=== PATIENT | female | born 1980 | race Caucasian/White ===

== ENCOUNTER 2017-09-11 09:03 | Emergency (ER) | payer BC ==
[2017-09-11 09:17] VITALS: BP 129/84
[2017-09-11] MEDS ORDERED: Dexamethasone TAB* 4 MG PO ONE (10:10)
--- NOTE | 2017-09-11 10:11 | UC ---
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 She says that she is allergic to tide detergent and when she asked the other staff about the towels - they informed her that they ran out of the usual detergent so were using tide. They advised pt to come to for this rash and itchiness. She has not taken anything po. Denies fever, chills, SOB, facial swelling, throat swelling, or difficulty breathing. - History of Current Complaint Chief Complaint: UCRash Time Seen by Provider: 09/11/17 09:59 Stated Complaint: RASH Hx Obtained From: Patient Hx Last Menstrual Period: 09/05/17 Onset/Duration: Sudden Onset Timing: Constant Current Severity: None Pain Intensity: 0 Location: Diffuse - Allergy/Home Medications Allergies/Adverse Reactions: Allergies Allergy/AdvReac Type Severity Reaction Status Date / Time Tide laundry soap Allergy Rash Uncoded 09/11/17 09:18 Home Medications: Home Medications Liraglutide [Saxenda] 1 inj SQ DAILY 09/11/17 [History Confirmed 09/11/17] metFORMIN* [Glucophage 500 MG TAB *] 1,000 mg PO DAILY 09/11/17 [History Confirmed 09/11/17] Review of Systems Constitutional: Negative Skin: Rash Eyes: Negative ENT: Negative Respiratory: Negative Cardiovascular: Negative Gastrointestinal: Negative Neurological: Negative Psychological: Negative All Other Systems Reviewed And Are Negative: Yes PMH/Surg Hx/FS Hx/Imm Hx Endocrine History: Diabetes - Surgical History Surgical History: None Surgery Procedure, Year, and Place: vocal cord surgery - December 2015 - Family History Known Family History: Positive: Hypertension Negative: Cardiac Disease, Diabetes - Social History Occupation: Employed Full-time Lives: With Family Alcohol Use: Occasionally Alcohol Amount: WINE 2 X WEEK Substance Use Type: None Smoking Status (MU): Never Smoked Tobacco Household Exposure Type: Cigarettes Physical Exam Triage Information Reviewed: Yes Appearance: Well-Appearing, No Pain Distress, Obese Vital Signs: Initial Vital Signs Temp 97.1 F 09/11/17 09:13 Pulse 69 09/11/17 09:13 Resp 16 09/11/17 09:13 BP 129/84 09/11/17 09:13 Pulse Ox 99 09/11/17 09:13 Vital Signs Reviewed: Yes Eyes: Positive: Conjunctiva Clear, Other: - No edema. Negative: Conjunctiva Inflamed, Discharge ENT: Positive: Pharynx normal. Negative: Pharyngeal erythema, Muffled voice, Hoarse voice Neck: Positive: Supple, Nontender, No Lymphadenopathy, Other: - No edema. Trachea midline Respiratory: Positive: Lungs clear, Normal breath sounds, No respiratory distress, No accessory muscle use Cardiovascular: Positive: RRR, No Murmur, Pulses Normal Neurological: Positive: Alert Psychological: Positive: Age Appropriate Behavior Skin: Positive: Other - Diffuse mildly erythematous maculopapular rash focused on b/l UEs. No streaking, drainage, or open lesions. Course/Dx - Course Course Of Treatment: Pt said that this is her usual reaction when she is exposed to Tide. Dexamethsone given in clinic today. Rx for prednisone and advised to take benadryl prn itch. Go to ED if symptoms persist or worsen - Diagnoses Provider Diagnoses: Allergic reaction - contact Discharge - Discharge Plan Condition: Stable Disposition: HOME Prescriptions: predniSONE TAB* [Deltasone TAB*] 50 mg PO DAILY #5 tab Patient Education Materials: General Allergic Reaction (ED) Forms: *Work Release Referrals: Tommy Carrera MD [Primary Care Provider] - Additional Instructions: If you develop a fever, shortness of breath, throat/face swelling, chest pain, new or worsening symptoms - please call your PCP or go to the ED. Your blood pressure was mildly elevated at todays visit. Please see your primary provider within 4 weeks for recheck and re-evaluation. 1) While taking the prednisone, you may notice a slight increase in your blood sugar levels - please monitor your sugars and if they are abnormally elevated for you, please contact your PCP.
== END 2017-09-11 10:17 | disposition home or self-care (01) ==
LOC: UCEAST 09:03
DX: L23.89 Allergic contact dermatitis due to other agents (principal); E11.9 Type 2 diabetes mellitus without complications; Z79.84 Long term (current) use of oral hypoglycemic drugs
CPT/HCPCS: 99212; G0463; J8540

== ENCOUNTER 2017-10-06 14:22 | Emergency (ER) | payer BC ==
--- NOTE | 2017-10-06 15:07 | RAD ---
INDICATION: Left ankle pain after a slip and fall injury COMPARISON: Left ankle radiograph dated March 25, 2010 TECHNIQUE: 3 views of the left ankle were obtained. FINDINGS: Depicted on the lateral view of the ankle there is a nondisplaced fracture at the posterior malleolus of the tibia. The bones are otherwise intact and appropriately aligned. Enthesophyte formation is noted at the calcaneal tubercle at the insertion site of the Achilles tendon and origin of the plantar fascia. A lunate shape bony focus is seen on the lateral view radiograph just inferior to the inferior margin of the joint between the calcaneus and cuboid bone unchanged from the prior ankle radiograph. IMPRESSION: NONDISPLACED POSTERIOR MALLEOLUS FRACTURE DESCRIBED ABOVE.
--- NOTE | 2017-10-06 15:46 | ED ---
Lower Extremity - HPI Summary HPI Summary: 36 female presents to ED with complaints of left ankle pain that began yesterday after sustaining a fall on the ice. States she heard a pop and has been unable to bear weight. States she tried elevating, resting and icing however pain just worsened. Has been unable to bear weight. Denies any other complaints or injuries. Did not hit head. No knee or hip pain. Patient has been taking ibuprofen with some relief. Pain is worse with weight bearing and movement. No numbness/tingling. Admits to swelling and bruising. - History of Current Complaint Chief Complaint: EDExtremityLower Stated Complaint: LT ANKLE INJURY Time Seen by Provider: 10/06/17 14:30 Hx Obtained From: Patient Hx Last Menstrual Period: 09/05/17 Mechanism Of Injury: Fall From A Standing Position, Twisted Onset of Pain: Immediate, Post Accident Onset/Duration: Days - yesterday Severity Initially: Mild Severity Currently: Mild Pain Intensity: 2 Pain Scale Used: 0-10 Numeric - worse with bearing weight and movement Timing: Constant Location: Is Discrete @ - left ankle Character Of Pain: Sharp, Aching Associated Signs And Symptoms: Positive: Swelling, Bruising Aggravating Factor(s): Standing, Ambulation, Movement, Weight Bearing Alleviating Factor(s): Rest Able to Bear Weight: No - no due to pain - Allergies/Home Medications Allergies/Adverse Reactions: Allergies Allergy/AdvReac Type Severity Reaction Status Date / Time Tide laundry soap Allergy Rash Uncoded 10/06/17 14:26 PMH/Surg Hx/FS Hx/Imm Hx Endocrine/Hematology History: Denies: Hx Diabetes - borderline, Hx Thyroid Disease Cardiovascular History: Denies: Hx Hypertension, Hx Pacemaker/ICD Respiratory History: Reports: Hx Sleep Apnea - SLEEP STUDY TO BE DONE AFTER THIS SURGERY, POSSIBLE Denies: Hx Asthma, Hx Chronic Obstructive Pulmonary Disease (COPD) GI History: Reports: Hx Gastroesophageal Reflux Disease - ON MEDS Denies: Hx Ulcer Sensory History: Denies: Hx Contacts or Glasses, Hx Hearing Aid Opthamlomology History: Denies: Hx Contacts or Glasses Neurological History: Reports: Hx Seizures - ONE AT AGE 9 NONE SINCE Psychiatric History: Denies: Hx Panic Disorder - Surgical History Surgery Procedure, Year, and Place: vocal cord surgery - December 2015 Hx Anesthesia Reactions: No - Immunization History Immunizations Up to Date: Yes Infectious Disease History: No Infectious Disease History: Denies: Hx Clostridium Difficile, Hx Hepatitis, Hx Human Immunodeficiency Virus (HIV), Hx of Known/Suspected MRSA, Hx Shingles, Hx Tuberculosis, History Other Infectious Disease, Traveled Outside the [place] in Last 30 Days - Family History Known Family History: Positive: Hypertension Negative: Cardiac Disease, Diabetes - Social History Alcohol Use: Occasionally Alcohol Amount: WINE 2 X WEEK Substance Use Type: Reports: None Smoking Status (MU): Never Smoked Tobacco Review of Systems Constitutional: Negative Cardiovascular: Negative Respiratory: Negative Positive: Arthralgia, Myalgia, Decreased ROM, Edema Positive: Bruising - left ankle Neurological: Negative All Other Systems Reviewed And Are Negative: Yes Physical Exam Triage Information Reviewed: Yes Vital Signs On Initial Exam: Initial Vitals Temp Pulse Resp BP Pulse Ox 97.7 F 89 16 116/70 98 10/06/17 14:26 10/06/17 14:26 10/06/17 14:26 10/06/17 14:26 10/06/17 14:26 Vital Signs Reviewed: Yes Appearance: Positive: Well-Appearing, Well-Nourished, Pain Distress - mild to moderate worse with movement, and attempting weight bearing Skin: Positive: Warm, Skin Color Reflects Adequate Perfusion, Dry. Negative: Cold, Numb, Cyanosis @, Pale, Erythema @ Head/Face: Positive: Normal Head/Face Inspection Eyes: Positive: Conjunctiva Clear Neck: Positive: Supple Respiratory/Lung Sounds: Positive: Clear to Auscultation, Breath Sounds Present. Negative: Rales, Rhonchi, Wheezes Cardiovascular: Positive: Normal, RRR, Pulses are Symmetrical in both Upper and Lower Extremities - 2+. Negative: Murmur, Rub Musculoskeletal: Positive: Limited @ - left ankle with any ROM due to pain, Pain @ - left ankle diffusely lateral and anteriorly, Edema Left - mild lateral and anteriorly, Other - some ecchymosis also noted. Negative: Interruption @, Abnormal @ Neurological: Positive: Normal, Sensory/Motor Intact, Alert, Oriented to Person Place, Time, CN Intact II-III, NV Bundle Intact Distally, Unable to Assess Gait - due to injury/pain Diagnostics - Vital Signs Vital Signs Temp Pulse Resp BP Pulse Ox 10/06/17 14:26 97.7 F 89 16 116/70 98 - Laboratory Lab Statement: Any lab studies that have been ordered have been reviewed, and results considered in the medical decision making process. - Radiology ankle, left Xray Interpretation: Positive (See Comments) - NONDISPLACED POSTERIOR MALLEOLUS FRACTURE DESCRIBED ABOVE. 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 xray obtained and showed non displaced posterior malleolus tibia fracture without complication. due to patient's size cam boot was applied and splinted left ankle. normal CMS before and after. patient preferred boot, able to shower. aware of worsening signs and symptoms to watch out for. RICE, analgesia and continue ibuprofen. follow up ortho. crutches and non weight bearing. no other concerns at this time. - Diagnoses Differential Diagnosis/HQI/PQRI: Positive: Fracture (Closed), Sprain, Strain Provider Diagnoses: Tibia fracture Discharge - Discharge Plan Condition: Good Disposition: HOME Prescriptions: HYDROcodone/ACETAMIN 5-325 MG* [Baskin 5-325 TAB*] 1 tab PO Q6H PRN #6 tab MDD 2 PRN Reason: Pain Patient Education Materials: Ankle Fracture (ED) Referrals: Tommy Carrera MD [Primary Care Provider] - Rey Farley MD [Medical Doctor] - Additional Instructions: Keep splint applied and use crutches. Do not bear weight. Continue ibuprofen for pain and inflammation. Ice. Any new or worsening symptoms please seek medical attention promptly. Call and make an appointment with Orthopedics to be seen next week for further eval and cast application.
[2017-10-06 16:31] VITALS: BP 114/59
== END 2017-10-06 16:30 | disposition home or self-care (01) ==
LOC: ED 14:22
DX: S82.55XA Nondisplaced fracture of medial malleolus of left tibia, initial encounter for closed fracture (principal); W00.9XXA Unspecified fall due to ice and snow, initial encounter; Y92.9 Unspecified place or not applicable
CPT/HCPCS: 99282

== ENCOUNTER 2019-09-06 13:48 | Emergency (ER) | payer BC ==
--- NOTE | 2019-09-06 14:46 | UC ---
Back Pain HPI - HPI Summary HPI Summary: Patient is a 38yo female presenting with left lower back pain "sciatic pain" that shoots into her left buttock and down the back of left leg. Patient states she has a diagnosis of sciatica for the past several years. States she gets flares and this flare has been progressive over the last 2 weeks. Denies injury or trauma. Denies numbness and tingling. Denies difficulty ambulating. Patient states she called off work today and would like a note for today and tomorrow so she can rest. States the flares usually resolve with heat and ibuprofen. - History of Current Complaint Stated Complaint: LOWER BACK PAIN DOWN LEG Hx Obtained From: Patient Hx Last Menstrual Period: 09/05/17 - Allergies/Home Medications Allergies/Adverse Reactions: Allergies Allergy/AdvReac Type Severity Reaction Status Date / Time Tide laundry soap Allergy Rash Uncoded 09/06/19 14:49 Home Medications: Home Medications Acetaminophen TAB* [Tylenol TAB*] 650 mg PO Q4H PRN 09/06/19 [History Confirmed 09/06/19] PMH/Surg Hx/FS Hx/Imm Hx - Surgical History Surgical History: Yes Surgery Procedure, Year, and Place: vocal cord surgery - December 2015 - Family History Known Family History: Positive: Hypertension Negative: Cardiac Disease, Diabetes - Social History Alcohol Use: Occasionally Alcohol Amount: WINE 2 X WEEK Substance Use Type: None Smoking Status (MU): Never Smoked Tobacco Household Exposure Type: Cigarettes Review of Systems All Other Systems Reviewed And Are Negative: No Constitutional: Positive: Negative Respiratory: Positive: Negative Cardiovascular: Positive: Negative Gastrointestinal: Positive: Negative Genitourinary: Positive: Negative Musculoskeletal: Positive: Arthralgia - L lower back "sciatic pain". Negative: Decreased ROM, Edema Neurological/Mental Status: Positive: Negative. Negative: Paresthesia, Numbness Physical Exam - Summary Physical Exam Summary: Vital Signs Reviewed: Yes A+Ox3, no distress, obese Eyes: Conjunctiva Clear ENT: Hearing grossly normal neck: supple Respiratory: Positive: No respiratory distress, No accessory muscle use Cardiovascular: skin color reflect adequate perfusion Musculoskeletal Exam: SIMENTAL x 4 without difficulty, no TTP of lower back, +SLR, sensation grossly intact, no erythema or ecchymosis, normal gait observed Neurological: Positive: Alert, ambulatory without difficulty Psychological: Positive: age appropriate behavior Skin: Positive: no rash, no ecchymosis Back Pain Course/Dx - Course Course Of Treatment: Discussed sciatica and treatment of symptoms with patient. I provided the patient with an excuse from work and instructed to follow up with pcp if symptoms persist or worsen. Patient voiced understanding and agreed with treatment plan. - Differential Dx/Diagnosis Provider Diagnosis: Acute left-sided back pain with sciatica Discharge ED - Sign-Out/Discharge Documenting (check all that apply): Patient Departure All imaging exams completed and their final reports reviewed: No Studies - Discharge Plan Condition: Stable Disposition: HOME Patient Education Materials: Sciatica (ED), Lower Back Exercises (ED) Forms: *Work Release Referrals: Tommy Carrera MD [Primary Care Provider] - If Needed Additional Instructions: Continue to rest, ice/heat, and take ibuprofen as directed to help alleviate pain symptoms. Refrain from strenuous physical activity until pain has fully resolved. Be sure to continue to stretch. Follow up with your primary care provider if pain persists or worsens. - Billing Disposition and Condition Condition: STABLE Disposition: Home
[2019-09-06 15:00] VITALS: BP 138/84
== END 2019-09-06 15:04 | disposition home or self-care (01) ==
LOC: UCEAST 13:48
DX: M54.42 Lumbago with sciatica, left side (principal); Z91.09 Other allergy status, other than to drugs and biological substances
CPT/HCPCS: 99211; G0463

== ENCOUNTER 2019-10-02 18:16 | Emergency (ER) | payer BC ==
[2019-10-02 19:56] VITALS: BP 148/86
== END 2019-10-02 23:01 | disposition left against medical advice (07) ==
LOC: ED 18:16
DX: R05 Cough (principal); R51 Headache; Z53.21 Procedure and treatment not carried out due to patient leaving prior to being seen by health care provider
CPT/HCPCS: 99281

== ENCOUNTER 2019-10-18 15:37 | Emergency (ER) | payer BC ==
--- NOTE | 2019-10-18 15:57 | ED ---
GI/ HPI - HPI Summary HPI Summary: Patient is a 38 y/o F presenting to [facility] with complaints of RUQ pain. Patient states that she was sitting for an extended period of time one day two weeks ago. The following day, she had onset of pain. This RUQ pain is noted to wrap around to her right back. Pain has been present for the past two weeks. She characterizes her pain as a cramping sensation and rates her pain a 7/10 in severity. She had thought her pain was related to constipation and took some laxatives. Patient has been having bowel movements but no relief in pain. N/V, fever, cough, and SOB are all denied. She states that lifting her right arm alleviates her pain, sitting down aggravates it. Pain is not aggravated with food consumption. She notes that she was recently on antibiotics for PNA. PMHx of childhood seizures reported. PSHx of vocal cord surgery noted. Patient is a non-smoker, rarely drinks alcohol and does not use any substances. FMHx of diabetes and cardiac disease claimed. LNMP was in June 2019, patient states that she has been "very irregular" for her entire time. Patient does not believe that she could be . Home medications and allergies are reviewed. - History of Current Complaint Chief Complaint: EDAbdPain Time Seen by Provider: 10/18/19 15:44 Stated Complaint: RT SIDE AND BACK PAIN PER PT Hx Obtained From: Patient Hx Last Menstrual Period: 09/05/17 Onset/Duration: Started Weeks Ago, Still Present Timing: Constant, Lasting Weeks Current Severity: Severe Pain Intensity: 7 Location of Pain: Radiates to: - wraps around to right back, RUQ Pain Characteristics: Cramping Pain Radiates to: Back Associated Signs and Symptoms: Positive: Abdominal Pain, Other: - no SOB. Negative: Nausea, Vomiting, Constipation, Fever, Cough Aggravating Factor(s): Sitting Alleviating Factor(s): Movement - lifting right arm - Allergy/Home Medications Allergies/Adverse Reactions: Allergies Allergy/AdvReac Type Severity Reaction Status Date / Time Tide laundry soap Allergy Rash Uncoded 10/18/19 15:42 Home Medications: Home Medications NK [No Home Medications Reported] 10/18/19 [History Confirmed 10/18/19] PMH/Surg Hx/FS Hx/Imm Hx Endocrine/Hematology History: Denies: Hx Diabetes - borderline, Hx Thyroid Disease Cardiovascular History: Denies: Hx Hypertension, Hx Pacemaker/ICD Respiratory History: Reports: Hx Sleep Apnea - SLEEP STUDY TO BE DONE AFTER THIS SURGERY, POSSIBLE Denies: Hx Asthma, Hx Chronic Obstructive Pulmonary Disease (COPD) GI History: Reports: Hx Gastroesophageal Reflux Disease - ON MEDS Denies: Hx Ulcer History: Denies: Hx Renal Disease Sensory History: Denies: Hx Contacts or Glasses, Hx Hearing Aid Opthamlomology History: Denies: Hx Contacts or Glasses Neurological History: Reports: Hx Seizures - ONE AT AGE 9 NONE SINCE Psychiatric History: Denies: Hx Panic Disorder - Surgical History Surgery Procedure, Year, and Place: vocal cord surgery - December 2015 Hx Anesthesia Reactions: No Infectious Disease History: No Infectious Disease History: Denies: Hx Clostridium Difficile, Hx Hepatitis, Hx Human Immunodeficiency Virus (HIV), Hx of Known/Suspected MRSA, Hx Shingles, Hx Tuberculosis, History Other Infectious Disease, Traveled Outside the [place] in Last 30 Days - Family History Known Family History: Positive: Cardiac Disease, Diabetes - Social History Alcohol Use: Rare Substance Use Type: Reports: None Smoking Status (MU): Never Smoked Tobacco Review of Systems Negative: Fever Negative: Shortness Of Breath, Cough Gastrointestinal: Other - negative - constipation Positive: Abdominal Pain. Negative: Vomiting, Nausea All Other Systems Reviewed And Are Negative: Yes Physical Exam - Summary Physical Exam Summary: VITAL SIGNS: Reviewed. GENERAL: Patient is a well-developed and nourished female who is lying comfortable in the stretcher. Patient is not in any acute respiratory distress. HEAD AND FACE: No signs of trauma. No ecchymosis, hematomas or skull depressions. No sinus tenderness. EYES: PERRLA, EOMI x 2, No injected conjunctiva, no nystagmus. EARS: Hearing grossly intact. Ear canals and tympanic membranes are within normal limits. MOUTH: Oropharynx within normal limits. NECK: Supple, trachea is midline, no adenopathy, no JVD, no carotid bruit, no c- spine tenderness, neck with full ROM. CHEST: Symmetric, no tenderness at palpation. LUNGS: Clear to auscultation bilaterally. No wheezing or crackles. CVS: Regular rate and rhythm, S1 and S2 present, no murmurs or gallops appreciated. ABDOMEN: Soft, RUQ tenderness. No signs of distention. No rebound, no guarding, and no masses palpated. Bowel sounds are normal. EXTREMITIES: FROM in all major joints, no edema, no cyanosis or clubbing. NEURO: Alert and oriented x 3. No acute neurological deficits. Speech is normal and follows commands. SKIN: Dry and warm. Triage Information Reviewed: Yes Vital Signs On Initial Exam: Initial Vitals Temp Pulse Resp BP Pulse Ox 96.7 F 76 19 163/96 94 10/18/19 15:39 10/18/19 15:39 10/18/19 15:39 10/18/19 15:39 10/18/19 15:39 Vital Signs Reviewed: Yes Procedures - Sedation Patient Received Moderate/Deep Sedation with Procedure: No Diagnostics - Vital Signs Vital Signs Temp Pulse Resp BP Pulse Ox 10/18/19 15:39 96.7 F 76 19 163/96 94 - Laboratory Result Diagrams: 10/18/19 16:00 10/18/19 16:00 Lab Statement: Any lab studies that have been ordered have been reviewed, and results considered in the medical decision making process. - CT CT ABD/PEL CT Interpretation Completed By: Radiologist Summary of CT Findings: IMPRESSION: Hepatomegaly with hepatic steatosis. No biliary duct dilatation is noted. No. evidence of cholelithiasis is noted. No obstructive uropathy is noted. THIS REPORT WAS REVIEWED BY ED PHYSICIAN. - Ultrasound GALLBLADDER US Ultrasound Interpretation Completed By: Radiologist Summary of Ultrasound Findings: IMPRESSION: Hepatic steatosis. Partially contracted gallbladder with no evidence of. cholelithiasis or biliary duct dilatation. THIS REPORT WAS REVIEWED BY ED PHYSICIAN. GIGU Course/Dx - Course Assessment/Plan: Patient is a 38 y/o F presenting to [facility] with complaints of RUQ pain. Patient states that she was sitting for an extended period of time one day two weeks ago. The following day, she had onset of pain. This RUQ pain is noted to wrap around to her right back. Pain has been present for the past two weeks. She characterizes her pain as a cramping sensation and rates her pain a 7/10 in severity. She had thought her pain was related to constipation and took some laxatives. Patient has been having bowel movements but no relief in pain. N/V, fever, cough, and SOB are all denied. She states that lifting her right arm alleviates her pain, sitting down aggravates it. Pain is not aggravated with food consumption. She notes that she was recently on antibiotics for PNA. PMHx of childhood seizures reported. PSHx of vocal cord surgery noted. Patient is a non-smoker, rarely drinks alcohol and does not use any substances. FMHx of diabetes and cardiac disease claimed. LNMP was in June 2019, patient states that she has been "very irregular" for her entire time. Patient does not believe that she could be . Home medications and allergies are reviewed. In the ED course the patient was placed on a registered nurse cardiac. Past medical records reviewed. Blood test w/o a significant abnormality except for glucose 198, magnesium 1.7, CRP 8.4, urinalysis is contaminated. RUQ U/S IMPRESSION: Hepatic steatosis. Partially contracted gallbladder with no evidence of cholelithiasis or biliary duct dilatation. Abdominopelvic CT IMPRESSION: Hepatomegaly with hepatic steatosis. No biliary duct dilatation is noted. No evidence of cholelithiasis is noted. No obstructive uropathy is noted. In the ED course the patient was given Toradol for the pain. Blood tests without any significant abnormality. Images shows no acute pathology. I discussed all the findings and test results with the patient. Patient was instructed to return to the emergency room immediately if any of the symptoms returned worsens. Plan of care was discussed with the patient and he understands and agrees. All questions were answered at patient satisfaction. There were no further complaints or concerns. Lung exam before discharge: CTA B/L. Good air exchange. No wheezing or crackles heard. CVS: S1 and S2 present. No murmurs appreciated. Patient is alert and oriented x 3. Patient is hemodynamically stable. Patient will be discharged home with follow up PCP in the next 2-3 days - Diagnoses Provider Diagnoses: Upper abdominal pain Discharge ED - Sign-Out/Discharge Documenting (check all that apply): Patient Departure - discharge - Discharge Plan Condition: Stable Disposition: HOME Patient Education Materials: Abdominal Pain (ED) Referrals: Tommy Carrera MD [Primary Care Provider] - 3 Days Additional Instructions: PLEASE RETURN TO ED FOR ANY NEW OR WORSENING SYMPTOMS. PLEASE FOLLOWUP WITH YOUR PRIMARY CARE PHYSICIAN WITHIN THREE DAYS. - Billing Disposition and Condition Condition: STABLE Disposition: Home - Attestation Statements Document Initiated by Scribe: Yes Documenting Scribe: MAGGI REAL Provider For Whom Scribe is Documenting (Include Credential): ROSA M CAIN MD Scribe Attestation: I, MAGGI REAL, scribed for ROSA M CAIN MD on 10/18/19 at 2125. Scribe Documentation Reviewed: Yes Provider Attestation: The documentation as recorded by the scribeMAGGI accurately reflects the service I personally performed and the decisions made by me, ROSA M CAIN MD Status of Scribe Document: Viewed
[2019-10-18 16:12] LABS: ABS Eosinophils 0.1 10^3/ul (0-0.6); ABS Lymphocytes 1.8 10^3/ul (1.0-4.8); ABS Monocytes 0.7 10^3/ul (0-0.8); ABS Neutrophils 4.7 10^3/ul (1.5-7.7); Eosinophil % 0.9 %; Hematocrit 39 % (35-47); Hemoglobin 13.1 g/dL (12.0-16.0); Lymphocyte % 24.2 %; Mean Corpuscular HGB Conc 34 g/dL (31-36); Mean Corpuscular Hemoglobin 29 pg (27-31); Mean Corpuscular Volume 85 fL (80-97); Mean Platelet Volume 9.9 fL (7.4-10.4); Nucleated Red Blood Cells % 0.1; Platelet Count 217 10^3/uL (150-450); Red Blood Count 4.54 10^6 /uL (3.70-4.87); Red Cell Distribution Width 14 % (10-15); White Blood Count 7.3 10^3/uL (3.5-10.8)
[2019-10-18 16:30] LABS: ALT 40 U/L (7-52); AST 25 U/L (13-39); Albumin 3.4 g/dL (3.2-5.2); Albumin/Globulin Ratio 0.9 (1-3); Alkaline Phosphatase 62 U/L (34-104); Anion Gap 6 mmol/L (2-11); BUN/Creatinine Ratio 18.8 (8-20); Blood Urea Nitrogen 12 mg/dL (6-24); C Reactive Protein 8.41 mg/L (<8.01); CO2 Carbon Dioxide 25 mmol/L (22-32); Calcium 8.7 mg/dL (8.6-10.3); Chloride 104 mmol/L (101-111); EGFR African American 126.3 (>60); EGFR Non-African American 104.4 (>60); Globulin 3.7 g/dL (2-4); Glucose 198 mg/dL (70-100); Magnesium 1.7 mg/dL (1.9-2.7); Potassium 3.6 mmol/L (3.5-5.0); Sodium 135 mmol/L (135-145); Total Protein 7.1 g/dL (6.4-8.9)
[2019-10-18 16:36] LABS: HCG Pregnancy < 0.60 mIU/mL
[2019-10-18] MEDS ORDERED: Iohexol 300* (CONTRAST) 10 ML SDV IV ONE (17:10)
[2019-10-18 17:16] LABS: Urine Appearance Turbid; Urine Bilirubin Negative (Negative); Urine Blood Negative (Negative); Urine Color Amber; Urine Glucose 2+(150 mg/dL) (Negative); Urine Ketones Negative (Negative); Urine Nitrite Negative (Negative); Urine Protein 1+(30 mg/dL) (Negative); Urine Specific Gravity 1.031 (1.010-1.030); Urine Urobilinogen Negative (Negative)
[2019-10-18 17:20] LABS: Urine Bacteria Absent (Absent); Urine Red Blood Cell Absent (Absent); Urine Squamous Epithelial Cell Present (Absent); Urine White Blood Cell 2+(11-20/hpf) (Absent)
[2019-10-18] MEDS ORDERED: Ketorolac INJ* 30 MG/ML 1 ML VIAL IV PUSH ONE (18:20)
[2019-10-18 18:57] VITALS: BP 126/95
== END 2019-10-18 18:56 | disposition home or self-care (01) ==
LOC: ED 15:37
DX: R10.11 Right upper quadrant pain (principal); R73.03 Prediabetes; E03.9 Hypothyroidism, unspecified
CPT/HCPCS: 36415; 74177; 76705; 80053; 81003; 81015; 83605; 83690; 83735; 84702; 85025; 86140; 87086; 96374; 99283; J1885; Q9967